=== PATIENT | female | born 1990 | race Caucasian/White ===

== ENCOUNTER 2021-09-08 16:22 | Emergency (ER) | payer BC ==
[~2021-09-08] VITALS: Ht 167.6 cm; Wt 86.3 kg
[2021-09-08 16:32] VITALS: BP_SYST 125; BP_SYST 79; BP_DIAS 79
--- NOTE | 2021-09-08 16:41 | NUR ---
PT AMB TO BED9.
[2021-09-08 16:49] VITALS: BP_SYST 79
--- NOTE | 2021-09-08 16:57 | NUR ---
31 Y/O FEMALE C/O RED RASH ON THE TORSO GOING TO THE NECK AND ARMS, ITCHINESS AND DIFFICULTY BREATHING. RR 25 O2SAT 99% ON ROOM AIR. TOOK BENADRYL WITH MINIMAL EFFECT NKA HISTORY: HYSTERECTOMY
--- NOTE | 2021-09-08 17:04 | NUR ---
DR HUFFMAN AT BEDSIDE EVALUATING PATIENT
[2021-09-08] MEDS ORDERED: DEXAMETHASONE 10 MG/ML VIAL IVP ONE (17:15)
[2021-09-08] MEDS ORDERED: diphenhydrAMINE 50 MG/ML VIAL IVP ONE (17:15)
[2021-09-08] MEDS ORDERED: NACL 0.9% 500 ML IV ONE (17:15)
--- NOTE | 2021-09-08 17:35 | NUR ---
Patient does not wish to proceed with medical care recommended by DR JADON HUFFMAN. Patient given information related to possible complications, up to and including , which could occur as a result of leaving hospital at this time. Patient verbalizes understanding of risks involved leaving against medical advice. Patient has signed AMA form. WITNESSED BY SECONDARY RN, JAGJIT RN
== END 2021-09-08 17:35 | disposition left against medical advice (07) ==
LOC: MED 16:22
DX: L50.9 Urticaria, unspecified (principal)
CPT/HCPCS: 93005; 99283; J1100; J1200

== ENCOUNTER 2022-08-30 11:11 | Emergency (ER) | payer BC ==
[~2022-08-30] VITALS: Ht 167.6 cm; Wt 84.4 kg
[2022-08-30 11:21] VITALS: BP 121/74
--- NOTE | 2022-08-30 12:30 | NUR ---
PT AMBULATED TO BED 6
--- NOTE | 2022-08-30 12:40 | NUR ---
32YO FEMALE PT C/O R PELVIC PAIN X3DAYS. PAIN AT MOST ON MOVEMENT. REPORTS HAVING BLADDER REPAIR SX W/ BLADDER SLING IN PLACE X4 WEEKS AGO. STATES MILD DYSURIA. DENIES INJURY, N/V/D, FEVER, CHILLS OR SOB. PT AAOX4, ON CASE PLANNER HX: DENIES ALLERGIES: NORCO
[2022-08-30 13:14] LABS: BASOPHILS # (AUTO) 0.1 K/uL (0.00-0.22); BASOPHILS % (AUTO) 0.9 % (0.0-2.0); EOSINOPHILS # (AUTO) 0.3 K/uL (0-0.4); EOSINOPHILS % (AUTO) 4.1 % (0.0-4.0); HEMATOCRIT 37.5 % (36-48); HEMOGLOBIN 12.9 g/dL (12.0-16.0); LYMPHOCYTES # (AUTO) 2.4 K/uL (2.5-16.5); LYMPHOCYTES % (AUTO) 33.7 % (20.5-51.1); MEAN CORPUSCULAR HEMOGLOBIN 28 pg (27-31); MEAN CORPUSCULAR HGB CONC 34 g/dL (33-37); MEAN CORPUSCULAR VOLUME 82.3 fL (80-94); MONOCYTES # (AUTO) 0.6 K/uL (0.8-1.0); MONOCYTES % (AUTO) 7.7 % (1.7-9.3); NEUTROPHILS # (AUTO) 3.8 K/uL (1.8-7.7); NEUTROPHILS % (AUTO) 53.6 % (42.2-75.2); PLATELET COUNT (AUTO) 237 K/uL (140-450); RED BLOOD CELL COUNT(AUTO) 4.56 MIL/uL (4.20-5.40); RED CELL DISTRIBUTION WIDTH 13.8 % (11.6-13.7); WHITE BLOOD COUNT (AUTO) 7.2 K/uL (4.8-10.8)
[2022-08-30 13:17] LABS: ANION GAP 10.6 (8-16); CARBON DIOXIDE 29.6 mmol/L (21-32); CREATININE 0.9 mg/dL (0.6-1.3); POTASSIUM 4.2 mmol/L (3.5-5.1)
[2022-08-30 13:33] LABS: APPEARANCE,URINE CLEAR (CLEAR); BILIRUBIN,URINE NEGATIVE (NEGATIVE); BLOOD, URINE TRACE-I (NEGATIVE); COLOR,URINE YELLOW (YELLOW); LEUKOCYTE ESTERASE ,URINE NEGATIVE (NEGATIVE); NITRITE, URINE NEGATIVE (NEGATIVE); UGLUCOSE NEGATIVE (NEGATIVE)
--- NOTE | 2022-08-30 13:38 | NUR ---
US AT BEDSIDE
[2022-08-30 13:46] LABS: WBC,URINE 0-5 /HPF (0-5)
--- NOTE | 2022-08-30 14:59 | NUR ---
PT TAKEN TO CT VIA WHEELCHAIR
--- NOTE | 2022-08-30 15:09 | NUR ---
PT BROUGHT BACK VIA WHEELCHAIR
[2022-08-30] MEDS ORDERED: KETOROLAC 30 MG/ML VIAL IVP ONE (15:15)
[2022-08-30] MEDS ORDERED: OXYC60TE PO (16:03)
--- NOTE | 2022-08-30 16:15 | NUR ---
IV removed, catheter intact and site benign. Applied folded 4x4 gauze and tape to stop bleeding.
[2022-08-30 16:20] VITALS: BP 121/74
--- NOTE | 2022-08-30 16:20 | NUR ---
Patient discharged with v/s stable. Written and verbal after care instructions FOR PELVIC PAIN given and explained. Patient alert, oriented and verbalized understanding of instructions. Ambulatory with steady gait. All questions addressed prior to discharge. ID band removed. Patient advised to follow up with PMD. Rx of OXYCONTIN given. Opportunity to ask questions provided and answered.
--- NOTE | 2022-08-30 16:21 | NUR ---
The patient's care was reviewed and supervised by Sarah Garcia, RN, RN.
== END 2022-08-30 16:20 | disposition home or self-care (01) ==
LOC: MED 11:11
DX: R10.2 Pelvic and perineal pain (principal); Z88.5 Allergy status to narcotic agent; Z88.8 Allergy status to other drugs, medicaments and biological substances; Z79.899 Other long term (current) drug therapy
CPT/HCPCS: 36415; 74177; 76856; 80048; 81001; 81025; 85025; 87086; 96374; 99285; J1885; Q0092; Q9967